=== PATIENT | male | born 1955 | race African-American/Black ===

== ENCOUNTER 2016-08-04 20:35 | Emergency (ER) | payer BC ==
[~2016-08-04] VITALS: Ht 172.7 cm; Wt 65.0 kg
[~2016-08-04 20:35] MED LIST: CARV3.125 PO; LISI10 PO
[2016-08-04 20:38] VITALS: BP 146/76; PULSE 75; RESP 14; TEMP 98.6; O2SAT 99
[2016-08-04] MEDS ORDERED: BENA25TA3 PO (21:01)
[2016-08-04] MEDS ORDERED: PERM5CRE TOPICAL (21:01)
[2016-08-04] MEDS ORDERED: PRED5TAB PO (21:01)
--- NOTE | 2016-08-04 21:06 | PD ---
HPI Chief Complaint: Skin Problem Time Seen by Provider: 20:50 Travel History International Travel<30 days: No Contact w/Intl Traveler<30days: No Traveled to known affect area: No History of Present Illness HPI This is a 60-year-old male with history of HIV who presents for evaluation of rash. Symptoms onset 2 years ago. The rash started on his right forearm, now the rash seems to be on his forearms, back, legs. The rash is pruritic. He has been using [id number] hydrocortisone cream but the rash has persisted. He denies any cough, congestion, sore throat, nausea or vomiting, abdominal pain, fevers or chills, weight loss. He reports that he feels normal. Denies any genital lesions or urethral discharge. He is here because his was admitted for an unrelated issue and he was encouraged by staff to come for evaluation. He does note that his has had a similar rash for the past 2 months as well. The patient denies any recent change in living environment. They ablated same residence for 3 years. He does note that he occasionally sees tiny bugs in his bed and he "swats them away." No other complaints. PFSH Past Medical History Blood Disorders: Yes (HIV positive 6 to 7 years, no treatment) Cancer: No Cardiac Catheterization: Yes ( X 1 NO STENTS) Cardiovascular Problems: Yes (Observation for chest pain 10/26/14) Chest Pain: Yes Diabetes: No Diminished Hearing: No Genitourinary: No Hypertension: Yes Immune Disorder: Yes (HIV) Implanted Vascular Access Dvce: No Musculoskeletal: No Neurologic: No Psychiatric: No Reproductive: No Respiratory: No Thyroid Disease: No Past Surgical History Other Surgery: No Social History Alcohol Use: Yes ("2-3 BEERS PER NIGHT") Tobacco Use: No Substance Use: No Allergies-Medications (Allergen,Severity, Reaction): Coded Allergies: No Known Allergies (Unverified , 08/04/16) Reported Meds & Prescriptions Reported Meds & Active Scripts Active Benadryl Allergy (Diphenhydramine HCl) 25 Mg Tab 25 Mg PO Q6H PRN 5 Days Prednisone 5 Mg Tab 5 Mg PO BID 5 Days Permethrin Topical (Permethrin) 5% Cream 1 Applic TOPICAL ONCE Coreg 3.125 mg (Carvedilol) 3.125 Mg Tab 3.125 Mg PO Q12HR 30 Days Prinivil 10 mg (Lisinopril) 10 Mg Tab 10 Mg PO DAILY 30 Days Review of Systems Except as stated in HPI: all other systems reviewed are Neg Physical Exam Narrative GENERAL: Well-developed well-nourished male in no acute distress SKIN: Warm and dry. The patient has multiple excoriated papular lesions on the extremities and back. There are no vesicles, no pustules, no erythema, no petechiae, no hives, no annular lesions. HEAD: Atraumatic. Normocephalic. EYES: Pupils equal and round. No scleral icterus. No injection or drainage. ENT: No nasal bleeding or discharge. Mucous membranes pink and moist. NECK: Trachea midline. No JVD. CARDIOVASCULAR: Regular rate and rhythm. No murmur appreciated. RESPIRATORY: No accessory muscle use. Clear to auscultation. Breath sounds equal bilaterally. GASTROINTESTINAL: Abdomen soft, non-tender, nondistended. Hepatic and splenic margins not palpable. MUSCULOSKELETAL: No obvious deformities. No clubbing. No cyanosis. No edema. NEUROLOGICAL: Awake and alert. No obvious cranial nerve deficits. Motor grossly within normal limits. Normal speech. PSYCHIATRIC: Appropriate mood and affect; insight and judgment normal. Data Data Last Documented VS Vital Signs Date Time Temp Pulse Resp B/P Pulse Ox O2 Delivery O2 Flow Rate FiO2 08/04/16 20:38 98.6 75 14 146/76 99 Room Air [facility] Medical Decision Making Medical Screen Exam Complete: Yes Emergency Medical Condition: Yes Medical Record Reviewed: Yes Differential Diagnosis Scabies, bedbugs, secondary syphilis, fixed drug eruption, viral exanthem, pityriasis rosea Narrative Course 60-year-old male who has had a widespread pruritic rash for 2 months. His has had a similar pruritic rash. On examination he has excoriated papular lesions. Unknown etiology. There is a wide differential. His has a similar rash suggesting an environmental or infectious etiology. The plan would be to provide the patient prescriptions for permethrin cream, prednisone and Benadryl. He is encouraged to follow-up with a service delivery manager for definitive diagnosis. He has [employer] insurance and he is encouraged to go onto their website in order to find a local service delivery manager to takes that insurance. He verbalizes understanding. He is stable for discharge. Diagnosis Primary Impression: Pruritic rash Referrals: Oscillograph Technician Additional Instructions: As discussed, follow-up with a service delivery manager for definitive therapy. Use the medications as prescribed. Return for any emergent medical conditions. Med/Other Pt SpecificInfo: Prescription(s) given Scripts Diphenhydramine (Benadryl Allergy)25 Mg Tab25 Mg PO Q6H PRN (ALLERGIES) 5 Days Ref 0 Prov:Robinson Rodriguez MD 08/04/16 Prednisone 5 Mg Tab5 Mg PO BID 5 Days Ref 0 Prov:Robinson Rodriguez MD 08/04/16 Permethrin Topical 5% Cream1 Applic TOPICAL ONCE #1 TUBE Ref 1 Prov:Robinson Rodriguez MD 08/04/16 Disposition: 01 DISCHARGE HOME Condition: Stable Mars Moncada Aug 04, 2016 21:06
== END 2016-08-04 21:24 | disposition home or self-care (01) ==
LOC: NEPK 20:35
DX: R21 Rash and other nonspecific skin eruption (principal)
CPT/HCPCS: 99282

== ENCOUNTER 2016-09-02 10:19 | Emergency (ER) | payer BC ==
[~2016-09-02] VITALS: Ht 163.8 cm; Wt 59.0 kg
[~2016-09-02 10:19] MED LIST changes: +BENA25TA3 PO; +PERM5CRE TOPICAL; +PRED5TAB PO
[2016-09-02 10:30] VITALS: BP 118/66; PULSE 80; RESP 22; TEMP 99.2; O2SAT 98
[2016-09-02 10:33] VITALS: BP 118/66; PULSE 81; RESP 24; TEMP 99.2; O2SAT 98
[2016-09-02] MEDS ORDERED: SODIUM CHLORIDE 0.9% FLUSH 10 ML FLUSH IVF PRN (10:45)
--- NOTE | 2016-09-02 10:46 | PD ---
HPI Chief Complaint: Syncope/Near-Syncope Time Seen by Provider: 10:34 Travel History International Travel<30 days: No Contact w/Intl Traveler<30days: No Traveled to known affect area: No History of Present Illness HPI 60-year-old male with history of HIV not on antiretroviral therapy, unknown last CD4 count/viral load, CAD, here for evaluation of syncopal episode and abdominal pain. 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 There was no seizure-like activity. Episode lasted for about a minute according to the patient, and occurred about 2 hours ago. Currently the patient is complaining of some epigastric pain which she has had for the last 3-4 days. This pain is been intermittent, described as pressure, worse with eating. He denies chest pain or dyspnea. No paresthesias or motor deficits. No headache. Patient was seen here in the emergency department about one month ago for a pruritic rash which she is applying a cream to and states it has been helping. PFSH Past Medical History Blood Disorders: Yes (HIV positive 6 to 7 years, no treatment) Cancer: No Cardiac Catheterization: Yes ( X 1 NO STENTS) Cardiovascular Problems: Yes (Observation for chest pain 10/26/14) Chest Pain: Yes Diabetes: No Diminished Hearing: No Genitourinary: No Hypertension: Yes Immune Disorder: Yes (HIV) Implanted Vascular Access Dvce: No Musculoskeletal: No Neurologic: No Psychiatric: No Reproductive: No Respiratory: No Thyroid Disease: No Past Surgical History Other Surgery: No Social History Alcohol Use: Yes (2 BEERS PER DAY) Tobacco Use: No Substance Use: No Allergies-Medications (Allergen,Severity, Reaction): Coded Allergies: No Known Allergies (Unverified , 09/02/16) Reported Meds & Prescriptions Reported Meds & Active Scripts Active Review of Systems Except as stated in HPI: all other systems reviewed are Neg Physical Exam Narrative GENERAL: Well-developed, thin, comfortable, awake, alert, no acute distress. SKIN: Focused skin assessment warm/dry. Diffuse circular/hyperpigmented/raised lesions on upper and lower extremities. HEAD: Atraumatic. Normocephalic. EYES: Pupils equal and round. No scleral icterus. No injection or drainage. ENT: Mucous membranes pink and moist. NECK: Trachea midline. No JVD. No nuchal rigidity. CARDIOVASCULAR: Regular rate and rhythm. RESPIRATORY: No accessory muscle use. Clear to auscultation. Breath sounds equal bilaterally. GASTROINTESTINAL: Abdomen soft, nondistended. Mild epigastric tenderness without peritoneal signs. Rest of abdomen is soft and nontender. MUSCULOSKELETAL: No obvious deformities. No clubbing. No cyanosis. No edema. NEUROLOGICAL: Awake and alert. No obvious cranial nerve deficits. Motor grossly within normal limits. Normal speech. PSYCHIATRIC: Appropriate mood and affect; insight and judgment normal. Data Data Last Documented VS Vital Signs Date Time Temp Pulse Resp B/P Pulse Ox O2 Delivery O2 Flow Rate FiO2 09/02/16 12:52 81 18 111/62 99 Room Air 09/02/16 10:33 99.2 Orders Electrocardiogram (09/02/16 10:40) Complete Blood Count With Diff (09/02/16 10:40) Comprehensive Metabolic Panel (09/02/16 10:40) Magnesium (Mg) (09/02/16 10:40) Ckmb (Isoenzyme) Profile (09/02/16 10:40) Troponin I (09/02/16 10:40) Act Partial Throm Time (Ptt) (09/02/16 10:40) Prothrombin Time / Inr (Pt) (09/02/16 10:40) Chest, Single Ap (09/02/16 10:40) Ct Brain W/O Iv Contrast(Rout) (09/02/16 10:40) Ecg Monitoring (09/02/16 10:40) Iv Access Insert/Monitor (09/02/16 10:40) Oximetry (09/02/16 10:40) Sodium Chloride 0.9% Flush (Ns Flush) (09/02/16 10:45) Ct Abd/Pel W Iv Contrast(Rout) (09/02/16 ) Lipase (09/02/16 10:40) CKMB (09/02/16 10:30) CKMB% (09/02/16 10:30) Iohexol 350 Inj (Omnipaque 350 Inj) (09/02/16 12:54) Labs Laboratory Tests Test 09/02/16 10:30 White Blood Count 7.2 TH/MM3 Red Blood Count 3.90 MIL/MM3 Hemoglobin 11.8 GM/DL Hematocrit 34.3 % Mean Corpuscular Volume 88.0 FL Mean Corpuscular Hemoglobin 30.2 PG Mean Corpuscular Hemoglobin 34.3 % Concent Red Cell Distribution Width 12.4 % Platelet Count 137 TH/MM3 Mean Platelet Volume 9.9 FL Neutrophils (%) (Auto) % Lymphocytes (%) (Auto) % Monocytes (%) (Auto) % Eosinophils (%) (Auto) % Basophils (%) (Auto) % Neutrophils # (Auto) TH/MM3 Lymphocytes # (Auto) TH/MM3 Monocytes # (Auto) TH/MM3 Eosinophils # (Auto) TH/MM3 Basophils # (Auto) TH/MM3 CBC Comment AUTO DIFF Differential Total Cells 100 Counted Neutrophils % (Manual) 66 % Band Neutrophils % 10 % Lymphocytes % 12 % Monocytes % 11 % Eosinophils % 1 % Neutrophils # (Manual) 5.5 TH/MM3 Differential Comment FINAL DIFF MANUAL Platelet Estimate LOW Platelet Morphology Comment NORMAL Ovalocytes 1+ Prothrombin Time 12.3 SEC Prothromb Time International 1.1 RATIO Ratio Activated Partial 32.8 SEC Thromboplast Time Sodium Level 138 MEQ/L Potassium Level 4.4 MEQ/L Chloride Level 104 MEQ/L Carbon Dioxide Level 24.4 MEQ/L Anion Gap 10 MEQ/L Blood Urea Nitrogen 16 MG/DL Creatinine 0.93 MG/DL Estimat Glomerular Filtration 101 ML/MIN Rate Random Glucose 88 MG/DL Calcium Level 8.3 MG/DL Magnesium Level 2.1 MG/DL Total Bilirubin 0.6 MG/DL Aspartate Amino Transf 32 U/L (AST/SGOT) Alanine Aminotransferase 15 U/L (ALT/SGPT) Alkaline Phosphatase 63 U/L Total Creatine Kinase 196 U/L Creatine Kinase MB 0.6 NG/ML Troponin I LESS THAN 0.02 NG/ML Total Protein 7.6 GM/DL Albumin 2.8 GM/DL Lipase 109 U/L [facility] [place] Medical Decision Making Medical Screen Exam Complete: Yes Emergency Medical Condition: Yes Medical Record Reviewed: Yes Interpretation(s) EKG: Sinus, rate 75, normal axis, normal intervals, Q waves in anterior leads, no acute ischemic abnormality. Differential Diagnosis Syncope, dysrhythmia, anemia, ACS, metabolic abnormality, PE less likely, AAA unlikely, gastritis, peptic ulcer disease, pancreatitis, hepatobiliary disease, Kaposi sarcoma Narrative Course Initial vital signs show heart rate 80, blood pressure 118/66, pulse ox 98% on room air, oral temp of 99.2F. CBC shows WBC 7.2, hemoglobin 11.8, hematocrit 34.3, platelets 137. CMP is unremarkable. Lipase is 109. Cardiac enzymes are negative. CT head: No acute intracranial findings. CT abdomen pelvis: 3 mm calculus in the midportion of the urinary bladder, no other acute findings in the abdomen and pelvis. Chest x-ray: No acute cardio pulmonary disease verified. Patient was made aware of all findings. He is resting comfortably. He denies any chest pain. He states that he may have passed out, slightly changing his earlier story. I offered to admit him for further treatment and evaluation, however the patient states that he does not want to be admitted at this time. He will be discharged with outpatient follow-up with a primary care physician this week. I will also give him the name of the infectious disease doctor child development consultant with him to follow-up with regarding his HIV. He was informed on when to return to the emergency department. He verbalizes understanding and agreement with plan. Diagnosis Primary Impression: Syncope Qualified Code: R55 - Syncope, unspecified syncope type Referrals: Eleanor King MD 3 days Primary Care Physician 3 days Additional Instructions: Follow-up with a primary care physician this week. Follow-up and the infectious disease Dr King this week. Return to the emergency department for worsening symptoms or any other concerns. Scripts No Active Prescriptions or Reported Meds Disposition: 01 DISCHARGE HOME Condition: Stable Tony Aguero MD September 02, 2016 10:46
[2016-09-02 10:52] VITALS: O2SAT 100
[2016-09-02 11:17] LABS: HEMATOCRIT 34.3 % (39.0-51.0); MEAN CORPUSCULAR HEMOGLOBIN 30.2 PG (27.0-34.0); MEAN CORPUSCULAR HGB CONC 34.3 % (32.0-36.0); PLATELET COUNT 137 TH/MM3 (150-450); RED CELL DISTRIBUTION WIDTH 12.4 % (11.6-17.2); WHITE BLOOD COUNT 7.2 TH/MM3 (4.0-11.0)
[2016-09-02 11:22] LABS: HEMO FLAGS AUTO DIFF
[2016-09-02 11:29] LABS: APTT (PATIENT) 32.8 SEC (24.3-30.1); INTERNATIONAL NORMALIZED RATIO 1.1 RATIO; PROTHROMBIN TIME - PATIENT 12.3 SEC (9.8-11.6)
[2016-09-02 11:43] LABS: ALKALINE PHOSPHATASE 63 U/L (45-117); ALT (GPT) 15 U/L (12-78); ANION GAP 10 MEQ/L (5-15); AST (GOT) 32 U/L (15-37); BICARBONATE 24.4 MEQ/L (21.0-32.0); BLOOD UREA NITROGEN 16 MG/DL (7-18); CHLORIDE 104 MEQ/L (98-107); CREATINE KINASE 196 U/L (39-308); GLOMERULAR FILTRATION RATE 101 ML/MIN (>89); MAGNESIUM 2.1 MG/DL (1.5-2.5); SODIUM (NA) 138 MEQ/L (136-145); TOTAL BILIRUBIN ADULT 0.6 MG/DL (0.2-1.0)
[2016-09-02 11:45] LABS: POTASSIUM 4.4 MEQ/L (3.5-5.1)
[2016-09-02 11:58] LABS: CKMB 0.6 NG/ML (0.5-3.6)
--- NOTE | 2016-09-02 12:33 | RADRPT ---
EXAM DATE/TIME: 09/02/2016 11:14 [facility] COMPARISON: CHEST SINGLE AP, May 12, 2015, 11:14. INDICATIONS : Syncopal episode and abdominal pain. MEDICAL HISTORY : None. SURGICAL HISTORY : None. ENCOUNTER: Initial ACUITY: 1 day PAIN SCORE: 0/10 LOCATION: chest FINDINGS: Single AP view of the chest. The lungs are clear. Cardiomediastinal silhouette within normal limits. No evidence of pleural effusion or pneumothorax. CONCLUSION: No acute cardiopulmonary disease identified. Hugo Alexander MD on September 02, 2016 at 12:31 Board Certified Radiologist. This report was verified electronically.
[2016-09-02 12:34] LABS: BANDS 10 % (0-6); EOSINOPHILS 1 % (0-4); NEUTROPHIL # MANUAL DIFF 5.5 TH/MM3 (1.8-7.7); OVALOCYTES 1+ (NORMAL); POLYS (SEG NEUTROPHILS) 66 % (16-70); WBC DIFF SAMPLE 100
[2016-09-02 12:35] LABS: PLATELET ESTIMATE SMEAR LOW (NORMAL); PLATELET MORPHOLOGY NORMAL (NORMAL); SCAN/DIFF FINAL DIFF MANUAL
[2016-09-02 12:52] VITALS: BP 111/62; PULSE 81; RESP 18; O2SAT 99
[2016-09-02] MEDS ORDERED: IOHEXOL 350 MG/ML 10 ML VIAL (for RAD DIAG) IV ONE (12:54)
--- NOTE | 2016-09-02 14:02 | RADRPT ---
EXAM DATE/TIME: 09/02/2016 12:35 [facility] COMPARISON: No previous studies available for comparison. INDICATIONS : Syncopal episode. RADIATION DOSE: 52.84 CTDIvol (mGy) MEDICAL HISTORY : Hypertension. HIV. SURGICAL HISTORY : None. ENCOUNTER: Initial ACUITY: 1 day PAIN SCALE: 4/10 LOCATION: cranial TECHNIQUE: Multiple contiguous axial images were obtained of the head. Using automated exposure control and adj ustment of the mA and/or kV according to patient size, radiation dose was kept as low as reasonably a chievable to obtain optimal diagnostic quality images. FINDINGS: CEREBRUM: The ventricles are normal for age. No evidence of midline shift, mass lesion, hemorrhage or acute in farction. No extra-axial fluid collections are seen. POSTERIOR FOSSA: The cerebellum and brainstem are intact. The 4th ventricle is midline. The cerebellopontine angle i s unremarkable. EXTRACRANIAL: Partial opacification right ethmoid sinus. SKULL: The calvaria is intact. No evidence of skull fracture. CONCLUSION: No acute intracranial findings. Hugo Alexander MD on September 02, 2016 at 14:00 Board Certified Radiologist. This report was verified electronically.
--- NOTE | 2016-09-02 14:05 | RADRPT ---
EXAM DATE/TIME: 09/02/2016 12:40 [facility] COMPARISON: No previous studies available for comparison. INDICATIONS : Pain after fall. IV CONTRAST: 100 cc Omnipaque 350 (iohexol) IV ORAL CONTRAST: No oral contrast ingested. RADIATION DOSE: 4.5 CTDIvol (mGy) MEDICAL HISTORY : HIV. Hypertension. SURGICAL HISTORY : ENCOUNTER: Initial ACUITY: 1 day PAIN SCALE: 4/10 LOCATION: Bilateral abdomen. TECHNIQUE: Volumetric scanning of the abdomen and pelvis was performed. Using automated exposure control and ad justment of the mA and/or kV according to patient size, radiation dose was kept as low as reasonably achievable to obtain optimal diagnostic quality images. FINDINGS: LOWER LUNGS: The visualized lower lungs are clear. LIVER: Homogeneous density without lesion. There is no dilation of the biliary tree. No calcified gallston es. SPLEEN: Normal size without lesion. PANCREAS: Within normal limits. KIDNEYS: Normal in size and shape. There is no mass, stone or hydronephrosis. ADRENAL GLANDS: Within normal limits. VASCULAR: There is no aortic aneurysm. BOWEL/MESENTERY: No evidence of bowel dilatation. No free air or free fluid. Appendix within normal limits. ABDOMINAL WALL: Within normal limits. RETROPERITONEUM: There is no lymphadenopathy. BLADDER: 3 mm calculus in the dependent portion of the bladder. REPRODUCTIVE: Within normal limits. INGUINAL: There is no lymphadenopathy or hernia. MUSCULOSKELETAL: Bridging osteophyte left sacroiliac joint. Small osteophytes of the hips. CONCLUSION: 3 mm calculus in the midportion of the urinary bladder. No other acute findings in the abdomen and pe lvis. Hugo Alexander MD on September 02, 2016 at 14:01 Board Certified Radiologist. This report was verified electronically.
--- NOTE | 2016-09-02 16:00 | EKG ---
Date Performed: 09/02/2016 Time Performed: 10:41:31 PTAGE: 60 years EKG: Sinus rhythm POSSIBLE ANTERIOR MYOCARDIAL INFARCTION ABNORMAL ECG Compared to prior tracing no significant change PREVIOUS TRACING : 05/12/2015 11.56 DOCTOR: Courtney Wren Interpretating Date/Time 09/02/2016 15:58:56
== END 2016-09-02 14:46 | disposition home or self-care (01) ==
LOC: NEPD 10:19
DX: R55 Syncope and collapse (principal)
CPT/HCPCS: 70450; 71010; 74177; 80053; 82550; 82552; 83690; 83735; 84484; 85007; 85027; 85610; 85730; 93005; 99284; Q9967